=== PATIENT | male | born 1930 | race Caucasian/White ===

== ENCOUNTER → 2016-11-05 | Outpatient (CLI) | payer MEDICARE ==
--- NOTE | 2016-11-05 17:00 | PCVCIMAG ---
APPROVED REPORT Study performed: 11/05/2016 14:01:11 EXAM: Comprehensive 2D, Doppler, and color-flow Echocardiogram Status: routine BSA: 1.59 HR: 74 bpmBP: 132/60 mmHg Rhythm: NSR Other Information Study Quality: Adequate Indications Aortic Stenosis 2D Dimensions IVSd: 15.99 (7-11mm)LVOT Diam: 19.35 (18-24mm) LVDd: 32.16 mm PWd: 12.43 (7-11mm)Ascending Ao: 37.17 (22-36mm) LVDs: 29.42 (25-40mm) Left Atrium: 36.17 (27-40mm) Aortic Root: 27.76 mm Volumes Left Atrial Volume (Systole) Single Plane 4CH: 57.60 mLSingle Plane 2CH: 48.69 mL LA ESV Index: 34.00 mL/m2 Aortic Valve AoV Peak Ramos.: 3.28 m/s AO Peak Gr.: 43.08 mmHgLVOT Max P.15 mmHg AO Mean Gr.: 25.81 mmHgLVOT Mean P.84 mmHg AO V2 Mean: 2.42 m/sLVOT Max V: 1.02 m/s AO V2 VTI: 68.55 cmLVOT Mean V: 0.63 m/s BEN (VTI): 0.85 [id number] V1 VTI: 19.70 cm BEN Vmax: 0.91 cm2 SV (LVOT): 57.93 mL Mitral Valve E/A Ratio: 0.5 MV Decel. Time: 283.21 ms MV E Max Ramos.: 0.56 m/s MV A Ramos.: 1.10 m/s IVRT: 183.39 ms Pulmonary Valve PV Peak Gr.: 1.94 mmHg Tricuspid Valve TR Peak Ramos.: 2.26 m/s TR Peak Gr.: 20.39 mmHg Left Ventricle The left ventricle is normal size. There is normal LV segmental wall motion. Mild concentric left ventricular hypertrophy. Left ventricular systolic function is normal. The left ventricular ejection fraction is within the normal range. LVEF is 55-60%. Grade I - abnormal relaxation pattern. Right Ventricle The right ventricle is normal size. The right ventricular systolic function is normal. Atria The left atrium size is normal. The right atrium size is normal. Aortic Valve The aortic valve is normal in structure. No aortic regurgitation is present. Moderate aortic stenosis. There is no evidence of aortic valve stenosis. There is moderate valvular aortic stenosis. Calculated aortic valve area is 0.9 cm2 with maximum pressure gradient of 43 mmHg and mean pressure gradient of 26 mmHg. Mitral Valve The mitral valve is normal in structure. Mild mitral annular calcification. There is no mitral valve regurgitation noted. No evidence of mitral valve stenosis. Tricuspid Valve The tricuspid valve is normal in structure. There is no tricuspid valve regurgitation noted. Pulmonic Valve The pulmonary valve is normal in structure. There is no pulmonic valvular regurgitation. Great Vessels The aortic root is normal in size. IVC is normal in size and collapses with >50% inspiration Pericardium There is no pericardial effusion. <Conclusion> Left ventricular systolic function is normal. The left ventricular ejection fraction is within the normal range. Mild concentric left ventricular hypertrophy. Grade I - abnormal relaxation pattern. The right ventricle is normal size. The left atrium size is normal. Moderate aortic stenosis. There is no evidence of aortic valve stenosis. There is moderate valvular aortic stenosis. Calculated aortic valve area is 0.9 cm2 with maximum pressure gradient of 43 mmHg and mean pressure gradient of 26 mmHg. There is no mitral valve regurgitation noted. There is no tricuspid valve regurgitation noted. The aortic root is normal in size. There is no pericardial effusion.
== END | disposition home or self-care (01) ==
LOC: PCVCIMAG 13:46
PROVIDERS: ATTEND Internal Medicine Cardiovascular Disease
DX: I35.0 Nonrheumatic aortic (valve) stenosis (principal); I44.7 Left bundle-branch block, unspecified; E78.00 Pure hypercholesterolemia, unspecified; R94.31 Abnormal electrocardiogram [ECG] [EKG]; M19.90 Unspecified osteoarthritis, unspecified site; Z87.891 Personal history of nicotine dependence
CPT/HCPCS: 80061; 93005; 93306; G0463

== ENCOUNTER → 2017-07-09 | Outpatient (CLI) | payer MEDICARE | END | disposition home or self-care (01) | LOC: PCVCIMAG 10:48 | DX: I08.8 Other rheumatic multiple valve diseases (principal); R94.31 Abnormal electrocardiogram [ECG] [EKG]; R53.83 Other fatigue; I44.7 Left bundle-branch block, unspecified; Z87.891 Personal history of nicotine dependence; Z79.899 Other long term (current) drug therapy | CPT/HCPCS: 80061; 93005; 93306; G0463 ==

== ENCOUNTER → 2018-05-09 | Outpatient (CLI) | payer MEDICARE | END | disposition home or self-care (01) | LOC: PCVCCLINIC 11:22 | PROVIDERS: ATTEND Internal Medicine Cardiovascular Disease | DX: I35.0 Nonrheumatic aortic (valve) stenosis (principal); R00.0 Tachycardia, unspecified; I44.7 Left bundle-branch block, unspecified; E78.00 Pure hypercholesterolemia, unspecified; R06.02 Shortness of breath; E03.9 Hypothyroidism, unspecified; Z87.891 Personal history of nicotine dependence | CPT/HCPCS: 80061; 85610; 93005; G0463 ==

== ENCOUNTER → 2018-05-26 | Outpatient (CLI) | payer MEDICARE ==
--- NOTE | 2018-05-26 14:20 | PCVCIMAG ---
APPROVED REPORT Study performed: 05/26/2018 11:00:52 EXAM: Comprehensive 2D, Doppler, and color-flow Echocardiogram Patient Location: Echo lab Room #: [id number]: routine BSA: 1.84 HR: 85 bpmBP: 112/60 mmHg Rhythm: NSR with frequent arrhythmia Other Information Study Quality: Good Risk Factors: Cardiac Risk Factors: hypercholesteremia Indications Atrial Fibrillation New onset paroxysmal a fib 2D Dimensions LVEF(%): 59.00 (>50%) IVSd: 12.09 (7-11mm)LVOT Diam: 20.08 (18-24mm) LVDd: 41.11 mm PWd: 11.48 (7-11mm)Ascending Ao: 39.66 (22-36mm) LVDs: 23.34 (25-40mm) Left Atrium: 34.48 (27-40mm) Aortic Root: 26.53 mm LV Single Plane 4CH: 52.89 % LV Single Plane 2CH: 54.96 % Volumes Left Atrial Volume (Systole) Single Plane 4CH: 47.78 mLSingle Plane 2CH: 34.74 mL Biplane LA Volume: 44.00 mLLA ESV Index: 24.00 mL/m2 Aortic Valve AoV Peak Ramos.: 3.39 m/s AO Peak Gr.: 60.82 mmHgLVOT Max P.89 mmHg AO Mean Gr.: 35.83 mmHgLVOT Mean P.05 mmHg AO V2 Mean: 2.64 m/sLVOT Max V: 1.21 m/s AO V2 VTI: 75.81 cm BEN (VTI): 1.15 [id number] V1 VTI: 27.45 cm BEN Vmax: 1.13 cm2 Mitral Valve E/A Ratio: 0.5 MV Decel. Time: 235.84 ms MV E Max Ramos.: 0.58 m/s MV A Ramos.: 1.11 m/s MV PHT: 68.39 ms IVRT: 83.04 ms TDI E/Lateral E': 9.67E/Medial E': 14.50 Medial E' Ramos.: 0.04 m/s Lateral E' Ramos.: 0.06 m/s Pulmonary Valve PV Peak Ramos.: 1.00 m/sPV Peak Gr.: 4.33 mmHg Pulmonary Vein P Vein S: 0.46 m/sP Vein A: 0.64 m/s P Vein D: 0.26 m/sP Vein A Dur.: 134.9 msec P Vein S/D Ratio: 1.77 Tricuspid Valve TR Peak Ramos.: 2.54 m/s TR Peak Gr.: 25.90 mmHg TV Vmax: 0.55 m/sPA Pressure: 32.00 mmHg Left Ventricle The left ventricle is normal size. There is normal LV segmental wall motion. There is normal left ventricular wall thickness. Left ventricular systolic function is normal. The left ventricular ejection fraction is within the normal range. LVEF is 55-60%. Grade I - abnormal relaxation pattern. Left atrial pressure is elevated. Right Ventricle The right ventricle is normal size. The right ventricular systolic function is normal. Atria The left atrium size is normal. The right atrium size is normal. Aortic Valve Aortic valve is trileaflet. 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 No aortic regurgitation is present. Moderate to severe aortic stenosis. Highest mean aortic valve gradient is 36_mmHg. Peak aortic valve gradient is 53_mmHg. Calculated BEN by the continuity equation is 1.0_cm2. These measurements are averaged due to the frequent arrhythmias. Mitral Valve Moderate mitral annular calcification. The mitral valve is normal in structure and function. Mild mitral regurgitation. No evidence of mitral valve stenosis. Tricuspid Valve The tricuspid valve is normal in structure. Moderate tricuspid regurgitation with a PA pressure of 32 mmHg. Mild pulmonary hypertension. Pulmonic Valve The pulmonary valve is normal in structure. There is no pulmonic valvular regurgitation. Great Vessels The aortic root is normal in size. The ascending aorta is mildly dilated. Aortic arch is not well visualized. IVC is normal in size and collapses >50% with inspiration. Pericardium There is no pericardial effusion. There is no pleural effusion. <Conclusion> The left ventricle is normal size. LVEF is 55-60%. Grade I - abnormal relaxation pattern. Left atrial pressure is elevated. The right ventricle is normal size. The left atrium size is normal. Aortic valve is trileaflet. 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 Moderate to severe aortic stenosis. Highest mean aortic valve gradient is 36_mmHg. Peak aortic valve gradient is 53_mmHg. Calculated BEN by the continuity equation is 1.0_cm2. These measurements are averaged due to the frequent arrhythmias. Moderate mitral annular calcification. The mitral valve is normal in structure and function. Mild mitral regurgitation. Moderate tricuspid regurgitation with a PA pressure of 32 mmHg. Mild pulmonary hypertension. The aortic root is normal in size. There is no pericardial effusion.
== END | disposition home or self-care (01) ==
LOC: PCVCIMAG 12:34
PROVIDERS: ATTEND Internal Medicine Cardiovascular Disease
DX: I08.3 Combined rheumatic disorders of mitral, aortic and tricuspid valves (principal); I48.0 Paroxysmal atrial fibrillation; E78.00 Pure hypercholesterolemia, unspecified; R06.02 Shortness of breath; I44.7 Left bundle-branch block, unspecified; M19.90 Unspecified osteoarthritis, unspecified site; E03.9 Hypothyroidism, unspecified; Z79.899 Other long term (current) drug therapy; Z87.891 Personal history of nicotine dependence
CPT/HCPCS: 93005; 93306; G0463

== ENCOUNTER → 2018-08-31 | Outpatient (CLI) | payer MEDICARE | END | disposition home or self-care (01) | LOC: PCVCCLINIC 14:50 | PROVIDERS: ATTEND Internal Medicine Cardiovascular Disease | DX: I48.91 Unspecified atrial fibrillation (principal); I44.7 Left bundle-branch block, unspecified; I35.0 Nonrheumatic aortic (valve) stenosis; R06.02 Shortness of breath; E78.00 Pure hypercholesterolemia, unspecified; E03.9 Hypothyroidism, unspecified; Z87.891 Personal history of nicotine dependence; Z79.899 Other long term (current) drug therapy | CPT/HCPCS: 36415; 93005; G0463 ==